=== PATIENT | male | born 1955 | race Caucasian/White ===

== ENCOUNTER → 2016-08-17 | Outpatient (CLI) | payer OTHER ==
--- NOTE | 2016-08-17 12:40 | US ---
Ultrasound and Venous Duplex Doppler Study of the Right Lower Extremity Clinical History: 61-year-old male with right leg pain and a prior history of DVT, currently on blood thinners. ICD 10 Diagnostic Codes: I82.409, I83.019, and R22.41. Technique: A high frequency transducer was used for imaging and Doppler study of the veins of the [facility] lower extremity. Pulsed Doppler and color Doppler were utilized, along with various maneuvers t o assess flow in the veins. Cursory evaluation of the contralateral common femoral vein was obtained for comparison purposes. Comparison Studies: Duplex venous sonography, dated 05/05/2015 which identified sequela of previous e xtensive deep venous thrombosis with venous reflux and scarring and irregularity to the lumina of the right femoral vein and popliteal vein. This is also correlated with the reports of right lower extre mity venous Doppler ultrasound dated 07/18/2011 and 04/24/2011. Findings: The deep veins of the right lower extremity are evaluated between the groin and the upper calf. The right common femoral vein and the visualized profunda femoris vein are patent. The right fe moral vein and the popliteal vein are duplicated, with a main channel and an accessory deep venous ch adalberto, with chronic clot once again seen within the main channels, similar to the previous study. The re is partial thrombosis of the posterior tibial and peroneal veins, along their proximal to distal a spects. Previous studies in 2010 and 2011 identified some thrombus within one of the paired peroneal veins. The greater saphenous vein is compressible. The popliteal fossa is unremarkable. Impression: 1. There is chronic venous thrombosis present within the main channel of the right femoral vein and p opliteal vein, with patency of an accessory deep channel associated with these vessels. 2. Partially thrombosed right posterior tibial and peroneal veins, of indeterminate chronicity. Results were called to Elsa New. A test result has been communicated to a licensed care provider and documented in the [employer] Critical Result system on 08/17/2016 12:34, Message ID [id number].
== END ==
LOC: FIMAGING 11:01
PROVIDERS: ATTEND Physician Assistant
DX: I82.511 Chronic embolism and thrombosis of right femoral vein (principal); R93.8 Abnormal findings on diagnostic imaging of other specified body structures; Z86.718 Personal history of other venous thrombosis and embolism; Z79.01 Long term (current) use of anticoagulants

== ENCOUNTER 2016-12-07 08:42 | Emergency (ER) | payer OTHER ==
[2016-12-07] MEDS ORDERED: NS 1,000 ML IV ONE (08:56)
--- NOTE | 2016-12-07 09:00 | EDPHY ---
HPI/HX/ROS/PE/MDM Narrative: CHIEF COMPLAINT: Dizziness, difficulty concentrating HPI: The patient is a 61-year-old male who complains of sudden onset of dizziness, blurred vision, and difficulty concentrating while at work at 8:30 a.m. The patient had a major work out yesterday. He felt fine this morning. He ate a normal breakfast of chorizo and eggs. He did not take any different medications. Patient denies marijuana use. While sitting at work the patient began to feel the room spinning. He is having difficulty concentrating and completing thoughts. He states he "feels like I just had versed" and feels "euphoric". Patient claims he is fighting to stay awake and complete his sentences. He continues to feel dizzy. Patient is anticoagulated on Coumadin. REVIEW OF SYSTEMS: Aside from elements discussed in the HPI, a comprehensive 10-point review of systems was reviewed and is negative. PMH: DVT on Coumadin. SOCIAL HISTORY: employment advisor. PHYSICAL EXAM: General: Patient is alert, in no acute distress. ENT: Eyes are normal to inspection. ENT inspection normal. Neck: Normal inspection. Full range of motion. Respiratory: No respiratory distress. Breath sounds normal bilaterally. Cardiovascular: Regular rate and rhythm. Strong peripheral pulses. Abdomen: The abdomen is nontender to palpation. There are no peritoneal signs. There are normal bowel sounds. Back: Normal to inspection. No tenderness to palpation. Skin: Normal color. No rash. Warm and dry. Extremities: Normal appearance. Full range of motion. Neuro: Oriented x3. Normal motor function. Normal sensory function. Psych: Odd affect. ED Course: Plan for head CT. Lab work including BMP and CBC. PT/INR and Troponin ordered. EKG was ordered and interpreted by myself. Please see [facility] system for official reading: Sinus rhythm, rate 95. Patient has a negative head CT. PT/INR is therapeutic. CBC is normal. Toxicology shows positive U Marijuana. 12:00 p.m.: I reevaluated the patient and discussed findings. Patient tells me he uses hemp oil drops every morning that supposedly do not contain any cannabis. This morning he was having difficulty getting the droplets out, he sucked on the nozzle and subsequently ingested more than usual. MDM: This patient presents with AMS. My first impression on evaluating him was that this likely represented cannabinoid ingestion, but patient adamantly denied this possibility. Further workup is negative with the exception of a positive Utox for THC. There are no signs of CVA, SAH, sepsis, ACS, or hyponatremia. Given these lab findings, I think accidental cannabinoid ingestion is the most likely diagnosis. I offered the patient admission for further workup and observation which he declines. We discussed strict return precautions. - Data Points Imaging Results: Imaging Impressions Head CT 12/07/16 08:57 Impression: 1. No significant intracranial abnormality seen. 2. Air-fluid levels involving the maxillary sinuses can be seen with mild sinusitis. Findings discussed with Matthew Birmingham MD at 9:43 hour, 12/07/2016. Laboratory Results: Laboratory Results 12/07/16 08:50 12/07/16 08:50 12/07/16 12/07/16 12/07/16 11:20 08:50 08:50 WBC RBC Hgb POC Hgb Hct POC Hct MCV MCH MCHC RDW Plt Count MPV Neut % (Auto) Lymph % (Auto) [place] % (Auto) Eos % (Auto) Baso % (Auto) Nucleat RBC Rel Count Absolute Neuts (auto) Absolute Lymphs (auto) Absolute Monos (auto) Absolute Eos (auto) Absolute Basos (auto) Absolute Nucleated RBC Immature Gran % Immature Gran # PT 21.9 SEC H SEC (12.0-15.0) INR 1.90 H (0.83-1.16) APTT 31.3 SEC SEC (23.0-38.0) POC Sodium Sodium 143 mEq/L mEq/L (134-144) POC Potassium Potassium 4.3 mEq/L mEq/L (3.5-5.2) POC Chloride Chloride 109 mEq/L mEq/L (97-110) Carbon Dioxide 23 mEq/l mEq/l (22-31) Anion Gap 11 mEq/L mEq/L (8-16) POC BUN BUN 15 mg/dL mg/dL (7-23) Creatinine 1.2 mg/dL mg/dL (0.7-1.3) POC Creatinine Estimated GFR > 60 Glucose 89 mg/dL mg/dL (70-100) POC Glucose Calcium 9.5 mg/dL mg/dL (8.5-10.4) Troponin I < 0.012 ng/mL ng/mL (0-0.034) Urine Opiates Screen NEGATIVE (NEGATIVE) Urine Barbiturates NEGATIVE (NEGATIVE) Ur Phencyclidine Scrn NEGATIVE (NEGATIVE) Ur Amphetamine Screen NEGATIVE (NEGATIVE) U Benzodiazepines Scrn NEGATIVE (NEGATIVE) Urine Cocaine Screen NEGATIVE (NEGATIVE) U Marijuana (THC) Screen NON-NEGATIVE H (NEGATIVE) 12/07/16 12/07/16 08:50 08:48 WBC 6.63 10^3/uL 10^3/uL (3.80-9.50) RBC 5.11 10^6/uL 10^6/uL (4.40-6.38) Hgb 16.2 g/dL g/dL (13.7-17.5) POC Hgb 16.7 gm/dL gm/dL (13.7-17.5) Hct 47.1 % % (40.0-51.0) POC Hct 49 % % (40-51) MCV 92.2 fL fL (81.5-99.8) MCH 31.7 pg pg (27.9-34.1) MCHC 34.4 g/dL g/dL (32.4-36.7) RDW 13.3 % % (11.5-15.2) Plt Count 169 10^3/uL 10^3/uL (150-400) MPV 9.5 fL fL (8.7-11.7) Neut % (Auto) 50.5 % % (39.3-74.2) Lymph % (Auto) 32.4 % % (15.0-45.0) [place] % (Auto) 9.8 % % (4.5-13.0) Eos % (Auto) 6.6 % % (0.6-7.6) Baso % (Auto) 0.5 % % (0.3-1.7) Nucleat RBC Rel Count 0.0 % % (0.0-0.2) Absolute Neuts (auto) 3.35 10^3/uL 10^3/uL (1.70-6.50) Absolute Lymphs (auto) 2.15 10^3/uL 10^3/uL (1.00-3.00) Absolute Monos (auto) 0.65 10^3/uL 10^3/uL (0.30-0.80) Absolute Eos (auto) 0.44 10^3/uL H 10^3/uL (0.03-0.40) Absolute Basos (auto) 0.03 10^3/uL 10^3/uL (0.02-0.10) Absolute Nucleated RBC 0.00 10^3/uL 10^3/uL (0-0.01) Immature Gran % 0.2 % % (0.0-1.1) Immature Gran # 0.01 10^3/uL 10^3/uL (0.00-0.10) PT INR APTT POC Sodium 145 mEq/L H mEq/L (134-144) Sodium POC Potassium 3.9 mEq/L mEq/L (3.3-5.0) Potassium POC Chloride 107 mEq/L mEq/L (97-110) Chloride Carbon Dioxide Anion Gap POC BUN 15 mg/dL mg/dL (7-23) BUN Creatinine POC Creatinine 1.3 mg/dL mg/dL (0.7-1.3) Estimated GFR Glucose POC Glucose 92 mg/dL mg/dL (70-100) Calcium Troponin I Urine Opiates Screen Urine Barbiturates Ur Phencyclidine Scrn Ur Amphetamine Screen U Benzodiazepines Scrn Urine Cocaine Screen U Marijuana (THC) Screen Medications Given: Discontinued Medications Sodium Chloride (Ns) 1,000 mls @ 0 mls/hr IV ONCE ONE PRN Reason: Wide Open Stop: 12/07/16 08:57 Last Admin: 12/07/16 09:29 Dose: 1,000 mls Ondansetron HCl (Zofran) 4 mg IVP EDNOW ONE Stop: 12/07/16 10:04 Last Admin: 12/07/16 10:03 Dose: 4 mg Point of Care Test Results: 12/07/16 08:48 POC Sodium 145 H POC Potassium 3.9 POC Chloride 107 POC BUN 15 POC Creatinine 1.3 POC Glucose 92 General Time Seen by Provider: 12/07/16 08:47 Initial Vital Signs: Initial Vital Signs Temperature (C) 36.7 C 12/07/16 08:51 Heart Rate 101 H 12/07/16 08:51 Respiratory Rate 21 H 12/07/16 08:51 Blood Pressure 118/88 H 12/07/16 08:51 O2 Sat (%) 95 12/07/16 08:51 O2 Delivery Mode Room Air Allergies/Adverse Reactions: Penicillins Allergy (Verified 03/08/12 11:51) Home Medications: Medication Instructions Recorded Multivitamins [Multivitamin (OTC)] 1 tab PO DAILY 03/07/12 Warfarin Sodium [Coumadin] 10 mg PO DAILY 03/07/12 Naproxen Sodium [Aleve] 220 mg PO DAILY PRN 07/11/12 Pharmacist Completed 07/11/12 07/11/12 diphenhydrAMINE [Benadryl 25 MG 25 mg PO DAILY PRN 07/11/12 (OTC)] Departure - Departure Disposition: Home, Routine, Self-Care Clinical Impression: Altered mental status, marijuana ingestion Condition: Good Instructions: Medicinal Use of Cannabis (ED) Additional Instructions: Followup with your primary care physician as needed. Referrals: Emily Kelly RN, BILINGUAL PATIENT SUPPORT CASEWORKER [Primary Care Provider] - As per Instructions Report Scribed for: Matthew Birmingham Report Scribed by: Suyapa Virgen Date of Report: 12/07/16 Time of Report: 09:00 Physician Review and Approval Statement: Portions of this note were transcribed by a medical biller. I personally performed the history, physical exam, and medical decision-making; and confirmed the accuracy of the information in the transcribed note.
--- NOTE | 2016-12-07 09:02 | CPEKG ---
Heart Rate: 95 RR Interval: 632 P-R Interval: 152 QRSD Interval: 98 QT Interval: 356 QTC Interval: 448 P Crane: 27 QRS Crane: 25 T Wave Crane: 37 EKG Severity - NORMAL ECG - EKG Impression: SINUS RHYTHM Electronically Signed By: Keven Crawford 08-Dec-2016 07:58:39
[2016-12-07 09:07] LABS: % IMMATURE GRANULYOCYTES 0.2 % (0.0-1.1); ABSOLUTE IMMATURE GRANULOCYTES 0.01 10^3/uL (0.00-0.10); ADD DIFF? NO; ADD MORPH? NO; ADD SCAN? NO; ATYPICAL LYMPHOCYTE FLAG 10 (0-99); FRAGMENT RBC FLAG 0 (0-99); HEMATOCRIT 47.1 % (40.0-51.0); HEMOGLOBIN 16.2 g/dL (13.7-17.5); LEFT SHIFT FLG 0 (0-99); LIPEMIA HEMOLYSIS FLAG 90 (0-99); MEAN CELL HEMOGLOBIN 31.7 pg (27.9-34.1); MEAN CELL HEMOGLOBIN CONCENTR. 34.4 g/dL (32.4-36.7); MEAN CELL VOLUME 92.2 fL (81.5-99.8); MEAN PLATELET VOLUME 9.5 fL (8.7-11.7); PLATELET CLUMPS FLAG 0 (0-99); PLATELET COUNT 169 10^3/uL (150-400); RED BLOOD CELL COUNT 5.11 10^6/uL (4.40-6.38); RED CELL DISTRIBUTION WIDTH 13.3 % (11.5-15.2)
[2016-12-07 09:16] LABS: APTT 31.3 SEC (23.0-38.0); INR 1.9 (0.83-1.16); PROTIME(PATIENT) 21.9 SEC (12.0-15.0)
[2016-12-07] MEDS ORDERED: ONDANSETRON 4 MG/2 ML VIAL ONE (09:21)
[2016-12-07 09:25] LABS: ANION GAP 11 mEq/L (8-16); CALCIUM 9.5 mg/dL (8.5-10.4); CARBON DIOXIDE 23 mEq/l (22-31); CHLORIDE 109 mEq/L (97-110); CREATININE 1.2 mg/dL (0.7-1.3); GLOMERULAR FILTRATION RATE > 60; GLUCOSE 89 mg/dL (70-100); POTASSIUM 4.3 mEq/L (3.5-5.2); SODIUM 143 mEq/L (134-144)
[2016-12-07 09:37] LABS: TROPONIN I < 0.012 ng/mL (0-0.034)
[2016-12-07] MEDS ORDERED: ONDANSETRON 4 MG/2 ML VIAL IVP ONE (10:03)
[2016-12-07 11:38] VITALS: RESP 16; TEMP 97.3
[2016-12-07 12:21] VITALS: BP 132/77; PULSE 77; O2SAT 95
== END 2016-12-07 12:20 | disposition home or self-care (01) ==
DX: R41.82 Altered mental status, unspecified (principal); T40.7X1A Poisoning by cannabis (derivatives), accidental (unintentional), initial encounter; Z79.01 Long term (current) use of anticoagulants
CPT/HCPCS: 80305; 82947-QW; 96374; J2405

== ENCOUNTER → 2017-03-14 | Outpatient (CLI) | payer OTHER | LOC: EDSTATUS 11:15 → FIMAGING 11:36 | PROVIDERS: ATTEND Registered Nurse | DX: J06.9 Acute upper respiratory infection, unspecified (principal) ==

== ENCOUNTER → 2017-05-14 | Outpatient (CLI) | payer OTHER | LOC: FIMAGING 14:15 | PROVIDERS: ATTEND Orthopaedic Surgery | DX: M17.12 Unilateral primary osteoarthritis, left knee (principal) ==

== ENCOUNTER 2017-05-25 10:14 | Observation (INO) | payer OTHER ==
[~2017-05-25 10:14] MED LIST: ROPIVACAINE 0.2% 80 MG, EPINEPHrine 0.2 MG, KETOROLAC TROMETHAMINE 30 MG in BAG 0 ML IU ONE; TRANEXAMIC ACID 3,000 MG in NS 50 ML IRR ONE; TRANEXAMIC ACID 3,000 MG/50 ML BAG IRR ONE; VANCOMYCIN 1 GM VIAL ONE
[2017-05-25] MEDS ORDERED: ceFAZolin 2 GM/SWFI 2 GM/20 ML SYR IVP ONE (10:38)
[2017-05-25] MEDS ORDERED: LIDOCAINE 1% 2 ML INJ ID PRN (10:38)
[2017-05-25] MEDS ORDERED: FAMOTIDINE 20 MG TAB PO ONE (10:38)
[2017-05-25] MEDS ORDERED: ACETAMINOPHEN 325 MG TAB PO ONE (10:38)
[2017-05-25] MEDS ORDERED: DEXAMETHASONE 4 MG/ML VIAL IVP ONE (10:38)
[2017-05-25] MEDS ORDERED: LR 1,000 ML IV ONE (10:38)
[2017-05-25 11:43] LABS: INR 1.02 (0.83-1.16); PROTIME(PATIENT) 13.3 SEC (12.0-15.0)
--- NOTE | 2017-05-25 12:15 | PDANEPAE ---
ANE History of Present Illness Left TKA ANE Past Medical History - Cardiovascular History Hx Hypertension: No Hx Arrhythmias: No Hx Chest Pain: No Hx Coronary Artery / Peripheral Vascular Disease: No Hx CHF / Valvular Disease: No Hx Palpitations: No Cardiovascular History Comment: Hx DVT R leg 1993 coumadin - Pulmonary History Hx COPD: No Hx Asthma/Reactive Airway Disease: No Hx Recent Upper Respiratory Infection: No Hx Oxygen in Use at Home: No Hx Sleep Apnea: No Sleep Apnea Screening Result - Last Documented: Negative - Neurologic History Hx Cerebrovascular Accident: No Hx Seizures: No Hx Dementia: No - Endocrine History Hx Diabetes: No Hypothyroid: No Hyperthyroid: No - Renal History Hx Renal Disorders: No - Liver History Hx Hepatic Disorders: Yes Hepatic History Comment: gilberts syndrome - Neurological & Psychiatric Hx Hx Neurological and Psychiatric Disorders: No - Cancer History Hx Cancer: No - Congenital Disorder History Hx Congenital Disorders: No - GI History GERD: no Hx Gastrointestinal Disorders: No - Other Health History Other Health History: hx sinus infections - Chronic Pain History Chronic Pain: No - Surgical History Prior Surgeries: hip, B shoulder ANE Review of Systems Review of systems is: negative Review of Systems: - Exercise capacity METS (RN): 4 METS ANE Patient History - Allergies Allergies/Adverse Reactions: oxycodone [From Percocet] Allergy (Intermediate, Verified 05/04/17 15:12) Itching Penicillins Allergy (Verified 03/08/12 11:51) - Home Medications Home medications: home medication list seen and reviewed Home Medications: Cyclobenzaprine [Flexeril 10 MG (*)] 10 mg PO DAILY PRN 05/04/17 [Last Taken 09/22] Doxycycline Hyclate [Vibramycin 100 MG (*)] 100 mg PO DAILY 05/04/17 [Last Taken 05/11/17] Warfarin Sodium [Coumadin 5MG (*)] 5 mg PO MWF@16 05/04/17 [Last Taken 05/16/17 18:00] Warfarin Sodium [Coumadin 5MG (*)] 10 mg PO SUTUTHFRSA@21 05/04/17 [Last Taken 05/17/17 18:00] Lovenox 40 MG (*) 40 mg SQ BID 05/25/17 [Last Taken 05/24/17 08:00] - NPO status NPO Status: no food or drink >8 hours NPO Since - Liquids (Date): 05/24/17 NPO Since - Liquids (Time): 22:00 NPO Since - Solids (Date): 05/24/17 NPO Since - Solids (Time): 22:00 - Anes Hx Anes Hx: no prior problems - Smoking Hx Smoking Status: Never smoked Marijuana use: No - Alcohol Use Alcohol Use: Occasionally - Family Anes Hx Family Anes Hx: none Family Hx Anesthesia Complications: none ANE Labs/Vital Signs - Vital Signs Blood Pressure: 128/79 Heart Rate: 73 Respiratory Rate: 20 O2 Sat (%): 92 Height: 193.04 cm Weight: 108.862 kg ANE Physical Exam - Airway Neck exam: FROM Mallampati Score: Class 2 Mouth exam: normal dental/mouth exam - Pulmonary Pulmonary: no respiratory distress, no rales or rhonchi - Cardiovascular Cardiovascular: regular rate and rhythym, no murmur, rub, or gallop - ASA Status ASA Status: II ANE Anesthesia Plan Anesthesia Plan: spinal Regional Anesthesia: adductor canal FNB
[2017-05-25] MEDS ORDERED: MIDAZOLAM 2 MG/2 ML VIAL IVP ONE (12:17)
[2017-05-25] MEDS ORDERED: MIDAZOLAM 2 MG/2 ML VIAL ONE ×2 (12:19→12:25)
[2017-05-25] MEDS ORDERED: BUPIVACAINE 0.5% 30 ML SDV ONE (12:24)
[2017-05-25] MEDS ORDERED: PROPOFOL/EMULSION 500 MG/50 ML BOTTLE IV ONE (12:25)
[2017-05-25] MEDS ORDERED: CYCLOBENZAPRINE 10 MG TAB PO PRN (12:51)
[2017-05-25] MEDS ORDERED: TEMAZEPAM 15 MG CAP PO PRN (12:51)
[2017-05-25] MEDS ORDERED: PROMETHAZINE HCL 25 MG/ML INJ IVP PRN ×2 (12:51→13:37)
[2017-05-25] MEDS ORDERED: BISACODYL 10 MG SUPP PR PRN (12:51)
[2017-05-25] MEDS ORDERED: POLYETHYLENE GLYCOL 3350 17 GM PKT PO PRN (12:51)
[2017-05-25] MEDS ORDERED: METOCLOPRAMIDE 10 MG/2 ML VIAL IVP PRN (12:51)
[2017-05-25] MEDS ORDERED: ONDANSETRON DISINTEGRATING 4 MG TAB PO PRN (12:51)
[2017-05-25] MEDS ORDERED: LACTULOSE 20 GM/30 ML UDCUP PO PRN (12:51)
[2017-05-25] MEDS ORDERED: PROMETHAZINE HCL 25 MG SUPPR PR PRN (12:51)
[2017-05-25] MEDS ORDERED: MAGNESIUM HYDROXIDE 30 ML UDCUP PO PRN (12:51)
[2017-05-25] MEDS ORDERED: diphenhydrAMINE 25 MG CAP PO PRN (12:51)
[2017-05-25] MEDS ORDERED: DIPHENOXYLATE/ATROPINE LOMOTIL 1 TAB PO PRN (12:51)
[2017-05-25] MEDS ORDERED: ONDANSETRON 4 MG/2 ML VIAL IVP PRN ×2 (12:51→13:37)
[2017-05-25] MEDS ORDERED: NS 1,000 ML IV SCH (13:00)
[2017-05-25] MEDS ORDERED: NALOXONE HCL 0.4 MG/ML INJ IVP PRN (13:37)
[2017-05-25] MEDS ORDERED: HYDROCODONE/APAP 5/325 TAB PO PRN (13:37)
[2017-05-25] MEDS ORDERED: fentaNYL 100 MCG/2 ML INJ IVP PRN (13:37)
--- NOTE | 2017-05-25 13:58 | PDHPUP ---
History & Physical Update H&P update statement: This history and physical update is based on an assessment of the patient which was completed after admission or registration (within 24 hours), but prior to the surgery/procedure. H&P update: H&P reviewed & patient examined, no change in patient's condition since H&P completed
--- NOTE | 2017-05-25 13:59 | POSTOPPROG ---
Post Op Note Date of Operation: 05/25/17 Surgeon: Mikael Be Emergency Management Specialist: cooper Be PAc Anesthesiologist: Yoni Anesthesia: Spinal Pre-op Diagnosis: l knee djd Post-op Diagnosis: same Indication: pain Procedure: L med pka Findings: med djd Inf/Abcess present in the surg proc area at time of surgery?: No EBL: 50-100
[2017-05-25] MEDS ORDERED: WARFARIN SODIUM 5 MG TAB PO SCH (16:00)
[2017-05-25] MEDS: HYDROCODONE/APAP 10/325 TAB PO PRN ×2 (16:55→18:19)
[2017-05-25] MEDS: ceFAZolin 2 GM/DEXTROSE 100 ML IV SCH (20:41)
[2017-05-25] MEDS: FAMOTIDINE 20 MG TAB PO SCH (20:41)
[2017-05-25] MEDS: SENNOSIDES/DOCUSATE SODIUM TAB PO SCH (20:41)
[2017-05-26] MEDS: HYDROCODONE/APAP 10/325 TAB PO PRN ×3 (01:00→11:47)
[2017-05-26] MEDS: ceFAZolin 2 GM/DEXTROSE 100 ML IV SCH (04:29)
[2017-05-26 04:55] LABS: HEMATOCRIT 41.4 % (40.0-51.0); HEMOGLOBIN 13.7 g/dL (13.7-17.5)
[2017-05-26 05:04] LABS: INR 1.06 (0.83-1.16); PROTIME(PATIENT) 13.7 SEC (12.0-15.0)
[2017-05-26 07:30] VITALS: BP 114/72; PULSE 66; RESP 16; TEMP 98.1; O2SAT 95
[2017-05-26] MEDS: FAMOTIDINE 20 MG TAB PO SCH (07:38)
[2017-05-26] MEDS: SENNOSIDES/DOCUSATE SODIUM TAB PO SCH (07:38)
[2017-05-26] MEDS ORDERED: DOXYCYCLINE HYCLATE 100 MG CAP/TAB PO SCH (09:00)
[2017-05-26] MEDS ORDERED: ENOXAPARIN 40 MG/0.4 ML SYR SC SCH (09:00)
--- NOTE | 2017-05-26 10:34 | ASMTCMCOM ---
CM Note CM Note Notes: Anticipate pt will have no DC needs. Date Signed: 05/26/2017 10:34 AM Electronically Signed By:Suzy Serrano LCSW
--- NOTE | 2017-05-26 11:33 | SOAPPROG ---
SOAP Progress Note Assessment/Plan: Assessment: patient is doing well POD1 s/p L med partial knee arthroplasty 1) pain management: pain is well controlled on oral pain meds 2) VTE ppx: recommend coumadin and lovenox. cont TANIA cedillo and SCDs 3) d/c planning: d/c to home today once patient is released from PT Plan: 05/26/17 11:32 Subjective: Abhi is doing well today, denies SOB, chest pain and N/V. Objective: Vital Signs Temp Pulse Resp BP Pulse Ox 36.7 C 66 16 114/72 95 05/26/17 07:29 05/26/17 07:29 05/26/17 07:29 05/26/17 07:29 05/26/17 07:29 Laboratory Results 05/26/17 04:45 05/25/17 05/26/17 05/27/17 05:59 05:59 05:59 Intake Total 1300 750 Output Total 20 Balance 1280 750 PT 13.7 SEC (12.0-15.0) 05/26/17 04:45 INR 1.06 (0.83-1.16) 05/26/17 04:45 LLE: incision dressing is clean and dry, NVI, +pf/df ICD10 Worksheet Patient Problems: Problems Problem Status Onset Primary localized osteoarthritis of left knee Acute Arthritis Active
--- NOTE | 2017-05-26 11:47 | GOP ---
[f rep st] OPERATIVE REPORT DATE OF OPERATION: 05/25/2017 SURGEON: Mariusz Be MD DOOR TO DOOR SELLING AGENT: SOLE Lerner ANESTHESIA: Spinal. PREOPERATIVE DIAGNOSIS: Left knee osteoarthritis. POSTOPERATIVE DIAGNOSIS: Left knee osteoarthritis. PROCEDURE PERFORMED: Left knee arthroplasty medial compartment partial head placement with computer navigation and robotic assist. FINDINGS: INDICATIONS: This is a 62 year old male with progressive pain of the left knee unresponsive to conservative care. Risks and benefits of surgical intervention were explained in detail. DESCRIPTION OF PROCEDURE: The patient was brought to the operating room and placed on the table in supine position. Spinal anesthesia was induced without difficulty. A pneumatic tourniquet was applied about the left proximal thigh and the leg was prepped and draped in sterile fashion. Attention was turned first to the distal aspect of the left femur. At 3 cm proximal to the lateral rise of the femur, 2 percutaneous half pins were placed for fixation of the femoral array. In a similar fashion, 2 pins were placed anterolateral on the tibia for fixation of the tibial array. External land marking and registration of the hip center was performed without difficulty. After exsanguination by elevation, the tourniquet was inflated to 275 mmHg. Incision was made from the tibial tuberosity to the superior pole of the patella. Dissection was carried out through the subcutaneous tissue to the deep fascia using Bovie electrocautery for hemostasis. Medial parapatellar arthrotomy was carried out to the superior pole of the patella. The medial collateral ligament was elevated and the infrapatellar fat pad was resected. Internal femoral and tibial registration was carried out without difficulty and the femoral and tibial checkpoints were placed and verified for accuracy. Attention was turned to the femur. The foot print for the size 5 femoral component was cut with the 6 mm bur using the [employer] robotic system and verified for accuracy against the CT based plan. The hole was cut for the femoral post. In a similar fashion, the 6 mm bur was used to cut the foot print for the size 5 tibial component using the [employer] system and verified for accuracy against the CT based plan. Attention was turned to the posterior aspect of the knee and remnants of the medial meniscus were excised. The posterior capsule was injected with ropivacaine, epinephrine and Toradol. Trial reduction was carried out and there was excellent range of motion, alignment and stability using the size 5 femoral component, the size 5 tibial component, and 5 x 8 mm polyethylene. All trials were then removed. The joint was thoroughly irrigated and carefully dried. One package of cement and 1 gram of vancomycin were mixed in the vacuum mixer and placed on the fixation surfaces of all components. The components were implanted and all excess cement was thoroughly removed. Implant placement was verified against the CT view plan and found to be excellent. The tourniquet was deflated and all bleeders were coagulated. The wound was thoroughly irrigated and closed using interrupted sutures of 2-0 Vicryl for the joint capsule. The subcu was closed with 3-0 Vicryl and the skin with 4-0 Monocryl. Dermabond and Steri-Strips were applied, followed by a compressive dressing. The patient was then moved from the operating room to the recovery room in good condition, having tolerated the procedure well. PATHOLOGY: Severe medial compartment osteoarthritis CASE CLASSIFICATION: Clean. /[id number]/MODL MTDD
--- NOTE | 2017-05-26 12:17 | GDS ---
[f rep st] DISCHARGE SUMMARY ADMISSION DIAGNOSIS: Left knee osteoarthritis. DISCHARGE DIAGNOSIS: Left knee osteoarthritis. PROCEDURE: Left partial knee arthroplasty, medial compartment, robot-assisted. VTE PROPHYLAXIS: Coumadin and Lovenox recommended. BRIEF DESCRIPTION OF HOSPITAL STAY: Patient was admitted for an elective joint arthroplasty. The pa fabby tolerated the procedure well and has passed physical therapy. The patient was given appropriat e antibiotic prophylaxis and venous thromboembolism prophylaxis. The patient's pain was well control led on oral pain medication, patient was holding down food, and had urinated. Decision was made to d ischarge the patient. The patient was given post-operative prescriptions pre-operatively. PLAN: To follow up as scheduled with Dr. Be's office on June 14 at 10:15 a.m. /[id number]/MODL
--- NOTE | 2017-05-26 14:17 | ASDISCHSUM ---
Discharge Information Plan Status: Medically Cleared to Leave: Discharge Date:05/26/2017 11:59 AM CM D/C Disposition: ADT D/C Disposition:Home, Routine, Self-Care Projected Discharge Date:05/26/2017 11:59 AM Transportation at D/C: Discharge Delay Reason: Follow-Up Date:05/26/2017 11:59 AM Discharge Slot: Final Diagnosis: Placement Information Patient Contact Information Contact Name:ANGELES Relationship: Address:[address] [place] [address] City:[place] Alternate Phone: State/Zip Code:[place] [address] Email: Financial Information Financial Class:HMO and PPO Plans Primary Plan Desc:[facility] Primary Plan Number:[id number] Secondary Plan Desc: Secondary Plan Number: Assessment Information CM Signing Teacher Assessment CJR Did you go to joint Answers: No (why?) Notes: Has watched online vide os class? CM Note CM Note Notes: Abhi is prepared to discharge home with the support of his . He has two walkers, his prescriptions, and has YouTubed extensive research on his surgery. He will be starting outpatient therapy 2 weeks after returning home. Date Signed: 05/15/2017 02:29 PM Electronically Signed By:Michelle Uriostegui [facility] CM Progress Note CM Note CM Note Notes: Anticipate pt will have no DC needs. Date Signed: 05/26/2017 10:34 AM Electronically Signed By:Suzy Serrano LCSW Intervention Information Intervention Type:*Incorrect Registration Date of Service:05/25/2017 02:12 PM Patient Type:Observation Staff Member:CAREN Guerrero Susan Hours: Discipline: Severity: Comment:
--- NOTE | 2017-05-26 17:21 | POSTANESTH ---
Post Anesthetic Evaluation Cardiovascular Status: Normal, Stable Respiratory Status: Normal, Stable Level of Consciousness/Mental Status: Can Participate in Eval Pain Control: Adequate, Prn Tx Ordered Nausea/Vomiting Control: Adequate, Prn Tx Ordered Complications Possibly Related to Anesthesia: None Noted (Seen 05/25/17 PM. Doing well)
== END 2017-05-26 11:59 | disposition home or self-care (01) ==
LOC: F3N 10:14 → INTOOBSV 10:14 → F3N 14:51
PROVIDERS: ADMIT Orthopaedic Surgery; ATTEND Orthopaedic Surgery
DX: M17.12 Unilateral primary osteoarthritis, left knee (principal)
CPT/HCPCS: 27442; 73560; 97116; 97161; 97165; G0378; C1713; J0171; J0690; J1100; J1650; J1885; J2250; J2704; J2795; J3370